=== PATIENT | female | born 1985 | race Caucasian/White ===

== ENCOUNTER 2018-03-09 08:45 | Inpatient (IN) | payer SELFPAY ==
[2018-03-09] VITALS (17 sets, daily range): BP systolic 100–132; BP diastolic 48–78; PULSE 76–103; RESP 14–18; TEMP 36.6–37.1; O2SAT 96–100; BMI 28.4
[2018-03-09] MEDS: Lactated Ringers 1,000 ML 50 ML IV ×2 (09:00→10:20)
[2018-03-09 09:08] LABS: ROM Internal Control Test YES-OK TO RESULT pt. (Internal QC)
[2018-03-09 09:10] LABS: ROM Patient Test POSITIVE (Negative)
[2018-03-09 09:16] LABS: Hematocrit 38.5 % (37-47); Hemoglobin 13.4 g/dl (12.0-15.0); Mean Corp Hgb Conc 34.8 g/gl (32-36); Mean Corpuscular Hgb 29.8 pg (27.0-32.0); Mean Corpuscular Volume 85.7 fL (81-99); Platelet Count 244 K/mm3 (150-450); RBC Distribution Width CV 11.9 % (11.6-14.6); RBC Distribution Width SD 36.6 fl (35.1-43.9); Red Blood Count 4.49 M/mm3 (4.2-5.4); White Blood Count 16.8 K/mm3 (4.4-11.0)
[2018-03-09 09:17] LABS: Scan Indicated on CBC? Y/N NO
[2018-03-09] MEDS: fentaNYL-bupivacaine (epidural) 100 ML BAG EPIDURAL (09:47)
[2018-03-09] MEDS: Cefazolin 2 GM in 0.9% Normal Saline 100 ML IV (13:05)
[2018-03-09] MEDS: Oxytocin 30 units/NS 500 ml 30 UNITS/500 ML IV.SOLN 167 UNITS IV (13:17)
--- NOTE | 2018-03-09 14:34 | PCM.OB.CSR ---
Delivery Classification: Stat Final STEFAN: 03/04/18 Gestational age: 40 Weeks and 5 Days Indications: Patient taken to OR where FHT's were noted to be 120's-130's. She continued to push. FHT decelerations were noted again & decision made to proceed with section for NRFHT's and OP presentation. Indications for : Nonreassuring Status Description of Procedure: Epidural anesthesia was dosed in the OR. She was prepped and draped in normal sterile fashion in a dorsal lithotomy position with a leftward tilt. After ensuring adequacy of anesthesia the Pfannensteil skin incision was made and carried through to the underlying fascia with a scalpel. The fascia was incised in the midline and carried laterally with the Montiel scissors. The rectus muscles were in the midline and the peritoneum was entered bluntly. The bladder flap was dissected down carefully with the Metzenbaum scissors and blunt dissection. The uterus was incised in a transverse fashion and then incision extended with cephalocaudad traction. The fetus was vertex and the head was brought to the incision in the flexed position. This required head elevation by the SPA ASSISTANT MANAGER vaginally. With good fundal pressure the head easily delivered. Gentle traction placed on head to allow delivery of anterior & posterior shoulders. No excess traction placed on head at any time. The body delivered easily. The 3VC cord was clamped and cut. Male then handed off to the waiting RN. The placenta was delivered w/ gentle traction and fundal massage and the uterus was exteriorized and cleared of all clots and debris. The uterine incision was closed with 2 1-0vicryl sutures in a running locked fashion. 2 additional figure of 8 sutures were needed on the right side of the incision to ensure hemostasis. The bovie was used to further obtain further hemostasis of the uterine incision. A second imbricating layer of monocryl was placed. The uterus was returned to the peritoneal cavity. The pelvis was irrigated & then cleared of all clots and debris. The uterine incision was reexamined and found to be hemostatic. Some aaliyah was placed over the uterine incision due to the denuded areas. The parietal peritoneum was reapproximated with running vicryl suture. The fascia was closed with looped PDS suture in a running standard fashion. The subcutaneous tissue was examined & any bleeding bovie cauterized. The subcutaneous tissue was reapproximated with 3-0 plain gut suture. The skin was closed in a subcuticular fashion by the SPA ASSISTANT MANAGER with me present in the labor and delivery suite. I performed the remainder of the procedure w/ assistance. Amniotic Membrane Rupture Type: Spontaneous Amniotic Fluid Description: Moderate meconium Placenta Disposition: [facility] Drain: [place] to straight drain Fluids Replaced: 1 L Cord Entanglement: None Cord Vessel Description: 3 Vessels Esitmated Blood Loss (ml): 900ml Gender: Male (1 minute): 8 (5 minute): 9 Delayed cord clamping: No Pre-op Antibiotic Given: Ancef 2 grams IV x1 Complications: None
--- NOTE | 2018-03-09 14:36 | OP.PN_ITS ---
R-Opwdohj-Likccftoe PostOp Date of Procedure: 03/09/18 Primary Surgeon/Physician: Bin Owens produce associate: Harry Blair Pre-op Diagnosis: Nonreassuring Status Post-Op Diagnosis: Nonreassuring Statu Surgery/Procedure Performed: Primary low transverse Section Description of Surgical Findings:: cephalic male infant Uterus & adnexa normal Estimated Blood Loss: 900ml Specimens Removed: placenta Drain: [place] to straight drain Type of Anesthesia: Epidural
[2018-03-09] MEDS: Lactated Ringers 1,000 ML 100 ML IV ×2 (15:43→21:51)
[2018-03-09] MEDS: Ketorolac 30 MG/ML Syringe IV (18:30)
[2018-03-09] MEDS: 0.9% Saline Lock 10 ML Syringe IV (18:30)
[2018-03-10] VITALS (10 sets, daily range): BP systolic 100–120; BP diastolic 60–81; PULSE 68–91; RESP 14–16; TEMP 36.4–37.3; O2SAT 93–100
[2018-03-10] MEDS: Ketorolac 30 MG/ML Syringe IV ×4 (00:28→18:08)
[2018-03-10 05:59] LABS: Hemoglobin 11.2 g/dl (12.0-15.0); Mean Corp Hgb Conc 32.9 g/gl (32-36); Mean Corpuscular Hgb 29.1 pg (27.0-32.0); Mean Corpuscular Volume 88.3 fL (81-99); Mean Platelet Vol. 10.4 fl (6.2-12.0); Platelet Count 191 K/mm3 (150-450); RBC Distribution Width CV 12.4 % (11.6-14.6); RBC Distribution Width SD 39.7 fl (35.1-43.9); Red Blood Count 3.85 M/mm3 (4.2-5.4); White Blood Count 16.7 K/mm3 (4.4-11.0)
[2018-03-10 06:01] LABS: Scan Indicated on CBC? Y/N NO
[2018-03-10] MEDS: Lactated Ringers 1,000 ML 100 ML IV (07:35)
--- NOTE | 2018-03-10 08:29 | PCM.HP.OB ---
History Date of Admission: 03/09/18 Final STEFAN: 03/04/18 Gestational age: 40 Weeks and 5 Days History of this : This is a 32 year-old, G [], P [], at 40 weeks gestational age. Medical History: Medical History (Last Updated 03/10/18 @ 08:31 by Bin Owens) [place] teeth extracted K08.409 Allergies No Known Allergies Allergy (Verified 03/09/18 08:53) Home Medications: Home Medications Vits [Prenatabs FA] 1 tablet PO DAILY 03/09/18 Smoking Status: Never smoker Number of Fetus(es): 1 History Past Pregnancies: Past Pregnancies Delivery Date Name GA/Weeks Outcome Route Weight Infant Gender Labor Length Anesthesia Delivery Location Provider FOB Labs: see [facility] H[facility]P Physical Exam Vitals: Vital Signs Temp Pulse Resp BP Pulse Ox 98.2 F 68 16 100/64 93 03/10/18 08:00 03/10/18 08:00 03/10/18 08:00 03/10/18 08:00 03/10/18 08:00 General: Alert, Oriented x3 Abdomen: Soft, Non Tender, Non-Distended, Gravid Extremities:: No tenderness/swelling PRINTING TECHNICIAN: Normal external genitalia Estimated gestational size: Appropriate for gestational size Presentation: Cephalic Cervix Dilation (cm): 9 - BBOW Station: 0 Effacement (%): 100 Assessment/Plan This is a 32 year-old, G [], P [], at 40&5 weeks gestational age. Admit to L&D Pain - epidural GSB negative Routine care EFW - less than 4500g, adequate pelvis
--- NOTE | 2018-03-10 08:34 | HP.PCM_ITS ---
History Date of Admission: 03/09/18 Final STEFAN: 03/04/18 Gestational age: 40 Weeks and 5 Days History of this : This is a 32 year-old, G [], P [], at 40 weeks gestational age. Medical History: Medical History (Last Updated 03/10/18 @ 08:31 by Bin Owens) [place] teeth extracted K08.409 Allergies No Known Allergies Allergy (Verified 03/09/18 08:53) Home Medications: Home Medications Vits [Prenatabs FA] 1 tablet PO DAILY 03/09/18 Smoking Status: Never smoker Number of Fetus(es): 1 History Past Pregnancies: Past Pregnancies Delivery Date Name GA/Weeks Outcome Route Weight Infant Gender Labor Length Anesthesia Delivery Location Provider FOB Labs: see [facility] Physical Exam Vitals: Vital Signs Temp Pulse Resp BP Pulse Ox 98.2 F 68 16 100/64 93 03/10/18 08:00 03/10/18 08:00 03/10/18 08:00 03/10/18 08:00 03/10/18 08:00 General: Alert, Oriented x3 Abdomen: Soft, Non Tender, Non-Distended, Gravid Extremities:: No tenderness/swelling DRUG SAFETY DATA MANAGEMENT SPECIALIST: Normal external genitalia Estimated gestational size: Appropriate for gestational size Presentation: Cephalic Cervix Dilation (cm): 9 - BBOW Station: 0 Effacement (%): 100 Assessment/Plan This is a 32 year-old, G [], P [], at 40&5 weeks gestational age. Admit to L&D Pain - epidural GSB negative Routine care EFW - less than 4500g, adequate pelvis
[2018-03-10] MEDS: Senna/Docusate Sodium 1 Tablet PO (11:47)
[2018-03-10] MEDS: 0.9% Saline Lock 10 ML Syringe IV ×2 (11:49→18:08)
[2018-03-11] MEDS: Ketorolac 30 MG/ML Syringe IV ×3 (00:06→12:24)
[2018-03-11] MEDS: 0.9% Saline Lock 10 ML Syringe IV ×3 (00:07→12:24)
[2018-03-11 02:07] VITALS: BP 131/76; PULSE 70; RESP 16; TEMP 36.8; O2SAT 95
[2018-03-11 10:15] VITALS: BP 110/74; PULSE 87; RESP 16; TEMP 36.5
--- NOTE | 2018-03-11 13:12 | PCM.PN.OB ---
Subjective: Pain well controlled, average lochia. Positive bowel movement. Tolerating regular diet. - Physical Exam General: Alert, Cooperative, No apparent distress Abdomen: Soft, Distended - Mildly and softly, Tender - Appropriately Skin: Incision - bandage clean, dry and intact Vital Signs Temp Pulse Resp BP Pulse Ox 97.7 F L 87 16 110/74 95 03/11/18 10:15 03/11/18 10:15 03/11/18 10:15 03/11/18 10:15 03/11/18 02:07 Oxygen Delivery Method Room Air Weight: 84.822 kg Body Mass Index (BMI) 28.4 Intake and Output for Last 24 Hours 03/09/18 03/10/18 03/11/18 23:59 23:59 23:59 Intake Total 1324 / 1324 Output Total 1300 / 1300 3600 / 3600 Balance -3600 / -3600 Medical Necessity - Tobacco Use Smoking Status: Never smoker Assessment/Plan Postoperative day #2 status post section. Patient is doing well. is breast-feeding and doing well. Patient may be discharged home today with routine instructions and follow-up if she desires.
--- NOTE | 2018-03-11 13:17 | DCINST_ITS ---
Discharge Diet: No Restrictions Discharge Activity: Return to Normal Activity, May Not Drive - for 2 weeks, May not drive while taking narcotic pain medications., May Shower, May Take a Tub Bath - in 7 days. May resume sexual activity in: 4-6 weeks Lifting Restrictions: 20 pounds Additional Activity Instructions:: Nothing in the vagina for 4-6 weeks. You may return to work/school in 6 weeks. Call your doctor if your incision/area has: Continuous Slow Oozing, Sudden Increased Bleeding, Increased Pain/ Swelling, Increased Redness, Foul Smelling Discharge Call your doctor if you observe: Fever of 101 or Higher, Using more than one pad per hour - for 2 hours Suture Line Care: Avoid Pulling/Pushing, Avoid Pinching/Bending Remove Dressing in (days):: 3 - or if it gets wet under the plastic Cleanse incision/area with: Keep Dressing Clean & Dry Additional Instructions: If you experience any of the following, contact your healthcare provider. * Bleeding that soaks a pad every hour for 2 hours * Fever 100.4 or higher * Unrelieved incision or abdominal pain * Swelling, redness, discharge or bleeding from your incision or episiotomy site * Your incision begins to separate * Problems urinating (including inability to urinate or burning while urinating). * Visual changes * Severe headache * Flu-like symptoms * Pain or redness in one of both of your breasts * Pain, warmth, tenderness or swelling in your legs, especially the calf area * Frequent nausea and vomiting * Symptoms of depression or anxiety If you experience any of the following, call 911 or go to the nearest Emergency Room. * Chest pain * Problems breathing * Seizure activity * Partial or complete paralysis of a body part, slurred speech, weakness or drooping of the face, or a sudden inability to walk or hold your balance Allergies/Adverse Reactions: Allergies No Known Allergies Allergy (Verified 03/09/18 08:53) Medications to take at Discharge Vits [Prenatabs FA ] 1 tablet PO DAILY 03/09/18 Ibuprofen [Motrin] 800 mg PO TID PRN PRN #60 tablet 03/11/18 Oxycodone HCl/Acetaminophen [Percocet 5-325] 1 - 2 tablet PO Q8 PRN 7 Days #28 tablet 03/11/18 The following prescriptions were given: Ibuprofen [Motrin] 800 mg PO TID PRN PRN #60 tablet PRN Reason: Pain Oxycodone HCl/Acetaminophen [Percocet 5-325] 1 - 2 tablet PO Q8 PRN 7 Days #28 tablet PRN Reason: Moderate-Severe pain Follow-Up: Call to make an appointment with your doctor for an incision check in 1-2 weeks. You will also need a 6 week post- follow up appointment. Test results from this visit will be discussed in further detail at your follow- up appointment, if applicable. Please Follow Up With: Bin Owens - Call to make an appointment for an i ncision check in 1-2 [phone] When: You will need a post check in 6 weeks. Primary Care Physician: Care Physician,No Primary [Primary Care Provider] -
[2018-03-11 14:00] VITALS: BP 117/84; PULSE 89; RESP 16; TEMP 36.4
--- NOTE | 2018-03-11 15:45 | CASEMGMT ---
Social Work Brief Assessment - Labor and Delivery Unit Refer documentation below for further details. Date of Referral/Notification: 03/09/2018 Time of Referral: 1430 Referred By: verbal notification by nursing staff Reason for Referral: first time parents, self-pay/no insurance Date of Intervention: 03/11/2018 Time of Intervention: 1540 Informant: Medical record and mother of baby (MOB) Roberta Mullen History: MOB is G1, P0 to 1 after delivering baby boy Umesh Mullen. MOB is to father of baby (FOB) Laura Mullen. 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 MOB with late care due to hectic work schedule with the horses. MOB does plan to take some time off from working, to focus on care of the baby now. MOB denies any form of abuse in relationship with FOB. MOB reports to have needed supplies, denies history of any emotional health issues, nor any substance use or dependence issues. MOB did have a negative drug screen on 09-22-17. MOB reports to have adequate support from FOB?s side of the family who lives locally, and from friends. Assessment: MOB reports to have needed supplies for baby. MOB?s mother is in town visiting from [place] through the weekend so will be available to help. FOB?s mother and then several nieces on FOB?s side are around and will be helping MOB out for a few weeks. Note, FOB?s family is from the [facility], FOB did not join the [facility] yazidism, but as is the norm in the [facility] family will be helping MOB and FOB in the period. MOB reports to have insurance through their yazidism, but that due MOB signing up for the insurance after MOB was not covered for the . Baby will be covered, and MOB will be covered moving forward. MOB reports to know about the [facility] package deal, and that FOB has already paid the package, so not worries this way. MOB denies need for other resources but accepting of community resource packet this automotive service writer provided. Discussed depression and anxiety with MOB. MOB receptive to taking information in case needed, but repots to feel happy, to feel a connection to baby, and denies any history of emotional health issues for self. MOB pleasant, bright and happy affect, smiled, attentive to baby during social work visit. Plan: MOB and baby to home when ready for discharge. Resources for home going provided. No further needs requested or indicated. -OBI Alcantara, CRM SOLUTION ARCHITECT
[2018-03-11 18:00] VITALS: BP 139/91; PULSE 77; RESP 16; TEMP 37.1
[2018-03-11] MEDS: Acetaminophen 500 MG Tablet 1000 MG PO (18:14)
[2018-03-11] MEDS: oxyCODONE 5 MG Tablet PO (18:14)
[2018-03-11 19:32] VITALS: BP 124/88
--- NOTE | 2018-03-11 21:13 | PCM.DC.SUM ---
Discharge Date and Diagnosis Date of Admission: 03/09/18 Date of Discharge: 03/11/18 Hospital Course and Treatment Summary of Care Provided: The patient is a 32 year old female who was admitted at 40 5/7 weeks in labor. She had a primary LTCS for nonreassuring FHTs. Postoperatively she did well and by postoperative day #2 she was ambulating, urinating, tolerating regular diet and oral pain medications and she was discharged home with routine instructions and prescriptions. ` [] - Physical Exam Vital Signs Temp Pulse Resp BP Pulse Ox 98.7 F 77 16 124/88 H 95 03/11/18 18:00 03/11/18 18:00 03/11/18 18:00 03/11/18 19:32 03/11/18 02:07 Oxygen Delivery Method Room Air Weight: 84.822 kg Body Mass Index (BMI) 28.4 Intake and Output for Last 24 Hours 03/09/18 03/10/18 03/11/18 23:59 23:59 23:59 Intake Total 1324 / 1324 Output Total 1300 / 1300 3600 / 3600 Balance -3600 / -3600 Discharge Diet: No Restrictions Discharge Activity: Return to Normal Activity, May Not Drive - for 2 weeks, May not drive while taking narcotic pain medications., May Shower, May Take a Tub Bath - in 7 days. May resume sexual activity in: 4-6 weeks Additional Activity Instructions:: Nothing in the vagina for 4-6 weeks. You may return to work/school in 6 weeks. Call your doctor if your incision/area has: Continuous Slow Oozing, Sudden Increased Bleeding, Increased Pain/ Swelling, Increased Redness, Foul Smelling Discharge Call your doctor if you observe: Fever of 101 or Higher, Using more than one pad per hour - for 2 hours Suture Line Care: Avoid Pulling/Pushing, Avoid Pinching/Bending Remove Dressing in (days):: 3 - or if it gets wet under the plastic Cleanse incision/area with: Keep Dressing Clean & Dry Home Medications: Medications to take at Discharge Vits [Prenatabs FA ] 1 tablet PO DAILY 03/09/18 Ibuprofen [Motrin] 800 mg PO TID PRN PRN #60 tablet 03/11/18 Oxycodone HCl/Acetaminophen [Percocet 5-325] 1 - 2 tablet PO Q8 PRN 7 Days #28 tablet 03/11/18 Following Prescrptions Were Given to Patient: Ibuprofen [Motrin] 800 mg PO TID PRN PRN #60 tablet PRN Reason: Pain Oxycodone HCl/Acetaminophen [Percocet 5-325] 1 - 2 tablet PO Q8 PRN 7 Days #28 tablet PRN Reason: Moderate-Severe pain Primary Care Physician: Care Physician,No Primary [Primary Care Provider] - Please Follow Up With: Bin Owens - Call to make an appointment for an incision check in 1-2 [phone] When: You will need a post check in 6 weeks. Medical Necessity - Tobacco Use Smoking Status: Never smoker Meaningful Use Info Meaningful Use Diagnoses (Choose all that apply): None applicable
== END 2018-03-11 19:45 | disposition home or self-care (01) | DRG 788 ==
LOC: WPOUT 08:51
PROVIDERS: Admitting Provider Obstetrics & Gynecology; Referring Provider Obstetrics & Gynecology; Visit Provider Obstetrics & Gynecology
DX: O76 Abnormality in fetal heart rate and rhythm complicating labor and delivery (principal); O48.0 Post-term pregnancy; Z3A.40 40 weeks gestation of pregnancy; Z37.0 Single live birth; O77.0 Labor and delivery complicated by meconium in amniotic fluid
CPT/HCPCS: 59025; 59050; 84112; 85027; 86850; 86900; 99218; J7120; A4216; G0378; J2405

== ENCOUNTER 2018-03-16 10:20 | Outpatient (CLI) | payer SELFPAY ==
[2018-03-09 08:52] VITALS: BMI 28.4
== END 2018-03-16 11:00 | disposition home or self-care (01) ==
LOC: WPOUT 10:23 → WP 10:25
PROVIDERS: Referring Provider Obstetrics & Gynecology; Visit Provider Obstetrics & Gynecology
DX: Z39.1 Encounter for care and examination of lactating mother (principal)
CPT/HCPCS: 96152

== ENCOUNTER 2022-04-19 23:30 | Inpatient (IN) | payer OTHER, SELFPAY ==
[2022-04-20] VITALS (18 sets, daily range): BP systolic 78–122; BP diastolic 39–78; PULSE 68–97; RESP 14–18; TEMP 36.2–37.4; O2SAT 97–100; BMI 28.1
[2022-04-20 00:30] LABS: Absolute Lymphocyte Count 3.53 X10^3/uL (0.83-4.51); Absolute Neutrophil Count 11.2 X10^3/uL (2.0-7.7); Basophil# 0.06 X10^3/uL; Basophil% 0.4 % (0-1); Eosinophil# 0.09 X10^3/uL; Eosinophils% 0.6 % (0-5); Hematocrit 39.8 % (37-47); Hemoglobin 13.2 g/dL (12.0-15.0); Lymphocyte # 3.53 X10^3/ul (0.83-4.51); Lymphocyte % 21.7 % (19-41); Mean Corp Hgb Conc 33.2 g/dL (32-36); Mean Corpuscular Hgb 28.9 pg (27.0-32.0); Mean Corpuscular Volume 87.3 fL (81-99); Mean Platelet Vol. 10.5 fl (6.2-12.0); Monocyte# 1.22 X10^3/uL; Monocyte% 7.5 % (0-10); NRBC Flagged by Analyzer 0 % (0-5); Neutrophil # 11.24 X10^3/uL (2.7-7.7); Neutrophil % 68.9 % (47-70); Platelet Count 365 K/mm3 (150-450); RBC Distribution Width CV 12.3 % (11.6-14.6); RBC Distribution Width SD 39.7 fl (35.1-43.9); Red Blood Count 4.56 M/mm3 (4.2-5.4); White Blood Count 16.3 K/mm3 (4.4-11.0)
[2022-04-20] MEDS: Cefazolin 2 GM in 0.9% Normal Saline 100 ML IV (01:00)
--- NOTE | 2022-04-20 01:14 | RAD_ITS ---
INDICATION: surgery POST OP EMERGENCY C SECTION, SCRUB COUNT EXAMINATION/TECHNIQUE: X-RAY - XR Abdomen 1 View portable. 1:06 AM. COMPARISON: FINDINGS: Single portable supine view. Mildly dilated small bowel in the upper abdomen, likely ileus. Relative paucity of bowel gas in the lower abdomen/pelvis. No radiopaque foreign body identified. The upper abdomen diaphragm/lung bases not included. RAD/Abdomen Single View (Portable) IMPRESSION: No radiopaque foreign body identified. Electronically Signed: Darya Samson MD at 2:16 EST ,
[2022-04-20] MEDS: Lactated Ringers 1,000 ML 100 ML IV (01:30)
[2022-04-20] MEDS: Oxytocin 15 Units/NS 250ml 15 UNITS/250 ML IV.SOLN 83 UNITS IV (01:35)
--- NOTE | 2022-04-20 01:56 | PCM.HP.OB ---
HPI - General General Date of Admission: 04/19/22 Date of Service: 04/20/22 Chief Complaint: SROM, breech HPI Narrative PAOLA HOWARD, is a 36 F who presents shortly after SROM at home completely dilated and incomplete footling breech presentation. Maternal Data Information Final STEFAN: 05/01/22 Final STEFAN Source: LMP PFSH PFSH Home Medications vits,calcium no.78-iron fumarate-folic acid 29 mg-1 mg tablet (Prenatabs FA) 1 tab PO DAILY 03/09/18 [History Last Taken 03/08/18] Allergy/AdvReac Type Severity Reaction Status Date / Time No Known Allergies Allergy Verified 03/09/18 08:53 Surgical History (Updated 04/20/22 @ 02:[address] Karey Brannon, DO) Previous section [place] teeth extracted Social History Smoking Status: Never smoker History Elective abortions Hx Para 1 Spontaneous abortions Hx # Term Pregnancies Ectopic pregnancies Hx # Pregnancies Multiple births # of living children Addt'l History: H/o 1 prior section Plan was for repeat section around 39 week gestation Vital Signs Vital Signs Vital Signs: 04/20/22 01:30 04/20/22 01:45 Temperature 97.1 F L Temperature Source Temporal Pulse Rate 89 97 Respiratory Rate 14 14 Respiratory Pattern Normal Blood Pressure 78/39 L 115/78 Blood Pressure Mean 52 90 Blood Pressure Source Monitor Monitor Blood Pressure Position Semi-Fowlers Semi-Fowlers Blood Pressure Location Left Arm Left Arm Pulse Ox 100 99 Oxygen Delivery Method Room Air Room Air Weight Weight: 188 lb Body Mass Index (BMI) 28.1 Physical Exam Const alert General Appearance: cooperative Narrative: 1 leg was noted to be coming out of the vagina past the introitus to the level of the mid thigh, and the other leg was palpated to be in the vaginal canal Labs Labs Labs: Blood Type A POSITIVE Antibody Screen NEGATIVE Hct 39.8 % (37-47) Hgb 13.2 g/dL (12.0-15.0) Rhogam given: No Assessment & Plan (1) 38 weeks gestation of : PLAN: Patient presented to labor and delivery complete and breech presentation after spontaneous rupture of membranes at home. Upon arrival the patient was back in the operating room with Dr. Mary Lou Toussaint present and evaluating the patient. 1 leg was noted to be coming out of the patient's vagina up to the level of mid thigh, and the other leg was palpated to be tucked up and in the vaginal canal. The head was palpated in the patient's left upper quadrant. The ultrasound machine was in the room but was not on and able to be used quickly. The decision was made to proceed with an emergent section given majority of the fetus was palpated in the patient's abdomen on exam. Discussed with patient decision to proceed with a stat section. See operative report for details. (2) History of section: (3) Breech presentation:
--- NOTE | 2022-04-20 02:11 | PCM.OPRPT ---
Problems Associated Problem List Diagnoses (1) Breech presentation: (2) History of section: (3) 38 weeks gestation of : Report of Operation Date of Procedure: 04/20/22 Pre-Operative Diagnosis: 38 week gestation, SROM, incomplete footling breech presentation, complete dilation, history prior section Post-Operative Diagnosis: As above Surgery/Procedure Performed:: Stat repeat section with T incision on the uterus with pfannenstiel skin incision Description of Surgical Findings:: 1 leg was noted to be coming out of the patient's vagina to the level of the mid thigh. Normal appearing placenta. Normal appearing uterus and bilateral adnexa. No significant adhesive disease noted. Apgars 3, 7, 9. Surgeon: Karey Brannon asbestos brake lining finisher helper: Mary Lou Haley asbestos brake lining finisher helper: Mariana ALFREDO Type of Anesthesia: General Special Medications: None Specimen's removed: Placenta Drains: [place] Estimated Blood Loss (mL): 900 Fluids Replaced: 2300 Description of Procedure: The patient was in the operating room upon my arrival at 2346. A vaginal exam was performed noting 1 leg coming out of the patient's vagina to the level of the mid thigh. The ultrasound machine was not on, and ready for emergent use. The patient's abdomen was palpated and the majority of the fetus was palpated to be in the abdomen, and the head was noted to be in the patient's left upper quadrant. The decision was made to proceed with an emergent section. A Betadine prep was performed and a [place] catheter placed. The patient was draped and general anesthesia was induced. A Pfannenstiel skin incision was made using the scalpel at 2352 and this was carried down to the underlying layer of fascia. The fascia was incised in the midline. The fascia was extended laterally with blunt dissection and traction. The rectus muscles were in the midline. The peritoneum was entered bluntly and the peritoneal incision was extended bluntly. A bladder blade was inserted. The uterus was palpated with the head noted to be at the fundus of the uterus. The buttocks was palpated to be in the lower uterine segment. The decision was made to make a low transverse incision on the uterus, as it was felt that the buttock could be brought to the hysterotomy. Once a low transverse incision was made the buttocks was attempted to be elevated out of the maternal pelvis. The buttocks was unable to be elevated enough to deliver through the hysterotomy. Given this the decision was made to T the uterine incision. Using bandage scissors the uterine incision was extended vertically. The head was then palpated and flexed, and unable to be delivered through the hysterotomy on one attempt given my angle. Dr. Mary Lou Toussaint then flexed the head and was able to deliver the head through the hysterotomy. I then delivered the shoulders and body of the easily through the hysterotomy without any force or delay. A VMI was delivered at 2357. The cord was clamped and cut immediately and the was handed off to the awaiting nursery staff. The placenta was removed with manual extraction. The uterus was exteriorized. The uterus was cleared of all clot and debris. The angles of the low transverse incision were closed with 1-0 Vicryl in a running locked fashion. Next the vertical extension was closed with 1-0 Vicryl in a running locked fashion. At this point Dr. Mary Lou Toussaint scrubbed out as Mariana ALFREDO was now present for the case. Mariana ALFREDO then assisted with the remaining portion of the procedure. A second imbricating layer was performed along the vertical incision using 1-0 Vicryl. Several additional [id number] sutures using 1-0 Vicryl were placed along the vertical incision for hemostasis. 3-0 Vicryl was then used to reapproximate the uterine serosa. Hemostasis was noted. Adnexa bilaterally were normal-appearing. The uterus was placed back into the abdomen. Gutters were cleared of all clot and debris. Eliecer was placed over the lower uterine segment and hysterotomy, and hemostasis was again confirmed. The peritoneum was closed with 3-0 Vicryl in a running fashion. The fascia was closed with strata fix in a running fashion. Subcutaneous space was irrigated. The subcutaneous space was reapproximated 3-0 Vicryl. The skin was closed with 4-0 Monocryl. A silver dressing was placed. An x-ray was taken at the end of the case and no retained instruments were noted. Instrument, sponge, needle counts were correct at the end of the case. Patient was then extubated and taken to the recovery room in stable condition. Grafts/Implants Used: None Procedure Start Time: 23:52 Complications None Admit VTE Documentation VTE Present on Admission: No VTE Mechan Device Prophylaxis: SCD's
[2022-04-20] MEDS: Acetaminophen 500 MG Tablet 1000 MG PO ×4 (02:34→20:32)
[2022-04-20] MEDS: Ketorolac 30 MG/ML Syringe IV ×4 (02:34→20:33)
[2022-04-20 05:46] LABS: Hematocrit 31.7 % (37-47); Hemoglobin 10.5 g/dL (12.0-15.0); Mean Corp Hgb Conc 33.1 g/dL (32-36); Mean Corpuscular Hgb 29.1 pg (27.0-32.0); Mean Corpuscular Volume 87.8 fL (81-99); Platelet Count 289 K/mm3 (150-450); RBC Distribution Width CV 12.3 % (11.6-14.6); RBC Distribution Width SD 39.8 fl (35.1-43.9); Red Blood Count 3.61 M/mm3 (4.2-5.4); White Blood Count 20.2 K/mm3 (4.4-11.0)
--- NOTE | 2022-04-20 08:16 | PCM.PN.OB ---
Subjective Subjective Pt is doing well. She has been up out of bed once without lightheadedness or dizziness. She denies chest pain, shortness of breath, leg pain. Lochia is normal. Pain is controlled. No nausea or vomiting. She is tolerating crackers and water. Objective Data Objective Data Vital Signs: Vital Signs Temp Pulse Resp BP Pulse Ox O2 Del Method 99.2 F H 73 16 113/67 97 Room Air 04/20/22 07:30 04/20/22 07:30 04/20/22 07:30 04/20/22 07:30 04/20/22 07:30 04/20/22 07:30 Oxygen Delivery Method Room Air Weight: 188 lb Body Mass Index (BMI) 28.1 Intake & Output: Intake and Output for Last 24 Hours 04/18/22 04/19/22 04/20/22 23:59 23:59 23:59 Intake Total 1333.33 / 1333.33 Output Total 2250 / 2250 Balance -916.67 / -916.67 Lab / Micro Data Result Diagrams: 04/20/22 05:37 Labs: Laboratory Results - last 24 hr 04/19/22 23:42: WBC 16.3 H, RBC 4.56, Hgb 13.2, Hct 39.8, MCV 87.3, MCH 28.9, MCHC 33.2, RDW Std Deviation 39.7, RDW Coeff of Yesica 12.3, Plt Count 365, MPV 10.5, Immature Gran % (Auto) 0.900, Neut % (Auto) 68.9, Lymph % (Auto) 21.7, [place] % (Auto) 7.5, Eos % (Auto) 0.6, Baso % (Auto) 0.4, Absolute Neuts (auto) 11.2 H, Absolute Lymphs (auto) 3.53, Nucleated RBC % 0 04/19/22 23:42: WBC Cancelled, Corrected WBC Cancelled, RBC Cancelled, Hgb Cancelled, Hct Cancelled, MCV Cancelled, MCH Cancelled, MCHC Cancelled, RDW Std Deviation Cancelled, RDW Coeff of Yesica Cancelled, Plt Count Cancelled, MPV Cancelled, Immature Gran % (Auto) Cancelled, Neut % (Auto) Cancelled, Lymph % (Auto) Cancelled, [place] % (Auto) Cancelled, Eos % (Auto) Cancelled, Baso % (Auto) Cancelled, Absolute Neuts (auto) Cancelled, Absolute Lymphs (auto) Cancelled, Total Counted Cancelled, Neutrophils % (Manual) Cancelled, Band Neutrophils % Cancelled, Lymphocytes % (Manual) Cancelled, Monocytes % (Manual) Cancelled, Eosinophils % (Manual) Cancelled, Basophils % (Manual) Cancelled, Metamyelocytes % Cancelled, Myelocytes % Cancelled, Promyelocytes % Cancelled, Blast Cells % Cancelled, Plasma Cell % (Manual) Cancelled, Other Cells % Cancelled, Nucleated RBC % Cancelled, Nucleated RBCs/100 WBC Cancelled, Differential Comment Cancelled, Diff Path Review Cancelled, Hypersegmented Neuts Cancelled, Atypical Lymphocytes Cancelled, Reactive Lymphocytes Cancelled, Smudge Cells Cancelled, Toxic Granulation Cancelled, Toxic Vacuolation Cancelled, Dohle Bodies Cancelled, Karley Rods Cancelled, Platelet Estimate Cancelled, Plt Morphology Comment Cancelled, RBC Morphology Cancelled, Polychromasia Cancelled, Hypochromasia Cancelled, Poikilocytosis Cancelled, Basophilic Stippling Cancelled, Anisocytosis Cancelled, Microcytosis Cancelled, Macrocytosis Cancelled, Spherocytes Cancelled, Sickle Cells Cancelled, Target Cells Cancelled, Tear Drop Cells Cancelled, Ovalocytes Cancelled, Stomatocytes Cancelled, [place] Bodies Cancelled, [place] Cells Cancelled, Bite Cells Cancelled, Crenated Cell Cancelled, Acanthocytes (Spur) Cancelled, Rouleaux Cancelled, Schistocytes Cancelled 04/20/22 00:25: Blood Type A POSITIVE, Antibody Screen NEGATIVE 04/20/22 05:37: WBC 20.2 H, RBC 3.61 L, Hgb 10.5 L, Hct 31.7 L, MCV 87.8, MCH 29.1, MCHC 33.1, RDW Std Deviation 39.8, RDW Coeff of Yesica 12.3, Plt Count 289, MPV 10.0 Radiography Diagnostic Testing: Radiology Impression KUB X-Ray 04/20/22 01:14 IMPRESSION: No radiopaque foreign body identified. Electronically Signed: Darya Samson MD at 2:16 EST , ADDENDUM: 04/20/22 0232 IMPRESSION: No radiopaque foreign body identified. N.B. : marshal rodriguez, OT, confirmed on 04/20/2022 02:25:45 (ET) that the healthcare facility has received the radiology report. Electronically Signed: Darya Samson MD at 2:16 EST , Physical Exam Const alert and no apparent distress General Appearance: comfortable HEENT normocephalic Resp normal respiratory effort GI soft to palpation and non-distended GI Narrative: ATTP, FF@U, non acute Extremity normal to inspection and no calf tenderness Assessment & Plan (1) Status post emergency section: PLAN: POD#1 s/p stat C/S for complete and breech presentation. Doing well post op. Pain well controlled. CBC reviewed. VSS. Baby in special care nursery. Routine care today.
[2022-04-20] MEDS: Senna/Docusate Sodium 1 Tablet PO (08:44)
[2022-04-21] MEDS: Acetaminophen 500 MG Tablet 1000 MG PO ×4 (02:35→20:45)
[2022-04-21] MEDS: Ibuprofen 600 MG Tablet PO ×4 (02:35→20:45)
[2022-04-21 02:36] VITALS: BP 97/60; PULSE 79; RESP 16; TEMP 36.8; O2SAT 98
--- NOTE | 2022-04-21 08:17 | PCM.PN.OB ---
Subjective Subjective Doing well per patient and nursing staff. Ambulating and taking PO without difficulty. Voiding and passing flatus. Pain controlled. , services for assistance. Denies headache, visual changes, chest pain, shortness of breath, leg pain or increased bleeding. Lochia normal. Objective Data Objective Data Vital Signs: Vital Signs Temp Pulse Resp BP Pulse Ox O2 Del Method 98.2 F 79 16 97/60 98 Room Air 04/21/22 02:36 04/21/22 02:36 04/21/22 02:36 04/21/22 02:36 04/21/22 02:36 04/21/22 02:36 Oxygen Delivery Method Room Air Weight: 188 lb Body Mass Index (BMI) 28.1 Intake & Output: Intake and Output for Last 24 Hours 04/19/22 04/20/22 04/21/22 23:59 23:59 23:59 Intake Total 2033.33 / 2033.33 Output Total 4500 / 4500 Balance -2466.67 / -2466.67 Lab / Micro Data Result Diagrams: 04/20/22 05:37 ROS Constitutional Constitutional: Reports systems reviewed and no addt'l complaints, except as documented; Denies headache(s) Eyes Eyes: Denies acute decrease in peripheral vision, blurry vision or change in vision ENT HEENT: Reports systems reviewed and no addt'l complaints, except as documented Cardiovascular Cardiovascular: Denies chest pain or dizziness Respiratory/Chest Respiratory/Chest: Denies cough, dyspnea, dyspnea on exertion, shortness of breath at rest or shortness of breath with exertion Gastrointestinal Gastrointestinal: Denies abdominal pain, diarrhea, nausea or vomiting Genitourinary Genitourinary: Denies abdominal discomfort Musculoskeletal Musculoskeletal: Denies limited range of motion Integumentary Integumentary: Reports systems reviewed and no addt'l complaints, except as documented Neurologic Neurologic: Reports systems reviewed and no addt'l complaints, except as documented Psychiatric Psychiatric: Reports systems reviewed and no addt'l complaints, except as documented Endocrine Endocrinology: Reports systems reviewed and no addt'l complaints, except as documented Hematologic/Lymphatic Hematologic/Lymphatic: Reports systems reviewed and no addt'l complaints, except as documented Allergic/Immunologic Allergic/Immunologic: Reports systems reviewed and no addt'l complaints, except as documented Physical Exam Const alert and oriented x3 General Appearance: cooperative Orientation / Consciousness: awake, oriented to person, oriented to place and oriented to time Exam Limitations: no limitations HEENT normocephalic Head and Scalp: normal to inspection, normocephalic and atraumatic Face and Sinus: normal facial exam Eyes General Eye: normal appearance of both eyes Neck full ROM Chest Chest: symmetrical chest wall rise Resp normal respiratory effort and normal air movement Auscultation: clear to auscultation bilaterally Cardio regular rate, regular rhythm, S1 normal heart sound, S2 normal heart sound, no murmurs, no rub, no gallops and no clicks GI normal to inspection, nondistended, normoactive bowel sounds and non-tender GI Narrative: Incision dressing dry and intact appearance of the vagina normal Bladder / Kidney Exam: no CVA tenderness Back/Spine normal ROM Extremity normal to inspection and full ROM Skin no rashes or lesions noted Neuro oriented x3, CN's II-XII intact bilaterally and moves all extremities Sensorium / Orientation: awake, alert and oriented to person Motor Exam: clonus absent Deep Tendon Reflexes: Rt Patellar (L4): 2+ and Lt Patellar (L4): 2+ Assessment & Plan (1) Status post emergency section: (2) Breech presentation: PLAN: Plan 1) Routine postoperative care 2) Vitals stable 3) I&O 4) Pain management 5) Planning D/C home tomorrow
[2022-04-21] MEDS: Senna/Docusate Sodium 1 Tablet PO (08:49)
[2022-04-21 08:51] VITALS: BP 97/54; PULSE 74; RESP 15; TEMP 36.5; O2SAT 98
[2022-04-21 13:18] VITALS: BP 98/56; PULSE 77; RESP 15; TEMP 36.8; O2SAT 97
[2022-04-21 20:31] VITALS: BP 108/63; PULSE 80; RESP 16; TEMP 36.6; O2SAT 98
[2022-04-22 02:03] VITALS: BP 99/58; PULSE 63; RESP 16; TEMP 36.3; O2SAT 97
[2022-04-22] MEDS: Acetaminophen 500 MG Tablet 1000 MG PO ×2 (02:09→09:17)
[2022-04-22] MEDS: Ibuprofen 600 MG Tablet PO ×2 (02:09→09:18)
--- NOTE | 2022-04-22 08:29 | PCM.PROGNOTE ---
Subjective Subjective patient seen at bedside, doing well. Patient reports good pain control. lochia mild. breast feeding. voiding and +BM w/o difficulty. tolerating regular diet. Objective Data Objective Data Vital Signs: Vital Signs Temp Pulse Resp BP Pulse Ox O2 Del Method 97.4 F L 63 16 99/58 L 97 Room Air 04/22/22 02:03 04/22/22 02:03 04/22/22 02:03 04/22/22 02:03 04/22/22 02:03 04/22/22 02:03 Oxygen Delivery Method Room Air Weight: 85.275 kg Body Mass Index (BMI) 28.1 Intake & Output: Intake and Output for Last 24 Hours 04/20/22 04/21/22 04/22/22 23:59 23:59 23:59 Intake Total 2033.33 / 2033.33 Output Total 4500 / 4500 Balance -2466.67 / -2466.67 Lab / Micro Data Result Diagrams: 04/20/22 05:37 Physical Exam Narrative dressing dry and intact Const alert and oriented x3 General Appearance: cooperative HEENT normocephalic Neck General: normal visual inspection GI soft to palpation and non-distended GI Narrative: Fundus firm Extremity normal to inspection and no calf tenderness Skin no rashes or lesions noted Neuro oriented x3 and CN's II-XII intact bilaterally Psych mental status grossly normal Assessment & Plan Assessment/Plan (1) Status post emergency section: (2) Breech presentation: (3) History of section: PLAN: Plan POD# 3 , Doing well Routine care pain mgmt monitor VS ambulation dc home
--- NOTE | 2022-04-22 08:30 | DCINST_ITS ---
Discharge Instructions Procedure Diet Discharge Diet: No restrictions Activity May resume sexual activity in: 6-8 weeks Lifting Restrictions: 25 Dressing / Incision Call your doctor if your incision/area has: Continuous Slow Oozing, Sudden Increased Bleeding, Increased Pain/ Swelling, Increased Redness, Foul Smelling Discharge and Swelling at the incision site Call your doctor if you observe: Fever of 101 or Higher, Inability to urinate, Using more than 1 pad per hour and Uncontrolled pain Additional Dressing/Incision Instructions:: remove dressing at 7 days post op- if it becomes saturated prior to that time you may remove it. Let soap and water run over incision sites and dab dry. keep incision clean and dry. Follow Up Care Please Follow Up With: Renetta Omalley MD When: 1-2 weeks post of incision check and again at 6 weeks post . [phone] Test Results: Test results from this visit will be discussed in further detail at your follow- up appointment, if applicable. Discharge Plan Admission Admit Date/Time: 04/19/22 23:30 Attending Provider: Karey Brannon Primary Care Provider: Care Physician,Oneyda Primary Discharge Orders/Prescriptions Prescriptions: New acetaminophen 500 mg Tablet 1,000 mg PO Q6H Qty: 0 0RF ibuprofen 600 mg Tablet 600 mg PO Q6H Qty: 0 0RF Continued Prenatabs FA 1 TABLET tablet 1 tab PO DAILY Referrals / Follow Up: Care Physician,No Primary [Primary Care Provider] - Disposition Disposition (needs filled in before D/C Order can be placed): Home, Self Care
--- NOTE | 2022-04-22 08:32 | PCM.DC.BLA ---
Discharge Summary Date of Admission: 04/19/22 Date of Discharge: 04/22/22 Summary: Patient was admitted to the hospital on April 19, 2022 with spontaneous rupture membranes at 38 weeks gestation- footling breech. Patient was found to have feet in the vagina and an emergency was performed by Dr. Karey Brannon. The uterine incision was a low transverse incision that was extended to a T-incision for delivery of the infant. The patient had an uncomplicated postoperative course and was discharged home on postoperative day #3 in stable condition. Meaningful Use Info Meaningful Use Diagnoses (Choose all that apply): None applicable Discharge Plan Admission Admit Date/Time: 04/19/22 23:30 Attending Provider: Karey Brannon Primary Care Provider: Care Physician,Oneyda Primary Discharge Orders/Prescriptions Prescriptions: New acetaminophen 500 mg Tablet 1,000 mg PO Q6H Qty: 0 0RF ibuprofen 600 mg Tablet 600 mg PO Q6H Qty: 0 0RF Continued Prenatabs FA 1 TABLET tablet 1 tab PO DAILY Referrals / Follow Up: Care Physician,Oneyda Primary [Primary Care Provider] - Disposition Disposition (needs filled in before D/C Order can be placed): Home, Self Care
[2022-04-22 09:22] VITALS: BP 98/60; PULSE 80; RESP 16; TEMP 36.5; O2SAT 98
[2022-04-22 09:23] VITALS: PULSE 80
[2022-04-22] MEDS: Senna/Docusate Sodium 1 Tablet PO (10:35)
== END 2022-04-22 11:40 | disposition home or self-care (01) | DRG 788 ==
PROVIDERS: Admitting Provider Obstetrics & Gynecology; Referring Provider Obstetrics & Gynecology; Visit Provider Obstetrics & Gynecology
DX: O32.1XX0 Maternal care for breech presentation, not applicable or unspecified (principal); O34.219 Maternal care for unspecified type scar from previous cesarean delivery; Z37.0 Single live birth; Z3A.38 38 weeks gestation of pregnancy
CPT/HCPCS: 74018; 85025; 85027; 86850; 86900; 86901; 99221; J7120; G0378

== ENCOUNTER 2024-02-03 09:53 | Inpatient (IN) | payer OTHER, SELFPAY ==
[2024-02-03] VITALS (19 sets, daily range): BP systolic 96–123; BP diastolic 45–81; PULSE 59–98; RESP 15–18; TEMP 36.1–36.6; O2SAT 97–100; BMI 30.2
[2024-02-03] MEDS: Lactated Ringers 1,000 ML 999 ML IV (10:20)
[2024-02-03 10:37] LABS: Absolute Neutrophil Count 6.1 X10^3/uL (2.0-7.7); Basophil# 0.02 X10^3/uL; Basophil% 0.2 % (0-1); Eosinophil# 0.07 X10^3/uL; Eosinophils% 0.8 % (0-5); Hematocrit 33.6 % (37-47); Hemoglobin 11.2 g/dL (12.0-15.0); Mean Corp Hgb Conc 33.3 g/dL (32-36); Mean Corpuscular Hgb 28.7 pg (27.0-32.0); Mean Corpuscular Volume 86.2 fL (81-99); Monocyte# 0.58 X10^3/uL; NRBC Flagged by Analyzer 0 % (0-5); Neutrophil % 74.2 % (47-70); Platelet Count 314 K/mm3 (150-450); RBC Distribution Width CV 12.8 % (11.6-14.6); RBC Distribution Width SD 39.7 fl (35.1-43.9); White Blood Count 8.2 K/mm3 (4.4-11.0)
[2024-02-03] MEDS: Acetaminophen 500 MG Tablet 1000 MG PO ×3 (10:39→23:59)
[2024-02-03] MEDS: Lactated Ringers 1,000 ML 150 ML IV (11:23)
[2024-02-03] MEDS: Sodium Citrate/Citric Acid 30 ML UDC PO (11:32)
--- NOTE | 2024-02-03 11:41 | PCM.HP.OB ---
HPI - General General Date of Admission: 02/03/24 HPI Narrative PAOLA HOWARD, is a 38 F who presents for with tubal sterilization. Maternal Data Information STEFAN Calculator Estimated Delivery Date Method Current WG Current Estimate 02/24/24 Manual 37w 0d PFSH PFSH Home Medications ?Medication ?Instructions ?Recorded ?Last Taken ?Type vits,calcium no.78-iron 1 tab PO DAILY 03/09/18 02/03/24 05:00 History fumarate-folic acid 29 mg-1 mg tablet (Prenatabs FA) Allergy/AdvReac Type Severity Reaction Status Date / Time No Known Allergies Allergy Verified 02/03/24 10:58 Surgical History (Updated 02/03/24 @ 11:[address] Bin Owens MD) Previous section [place] teeth extracted Social History Smoking Status: Never smoker History Elective abortions Hx Para 2 Spontaneous abortions Hx # Term Pregnancies Ectopic pregnancies Hx # Pregnancies Multiple births # of living children Vital Signs Vital Signs Vital Signs: 02/03/24 10:06 02/03/24 10:06 02/03/24 10:08 Temperature Temperature Source Pulse Rate 65 Respiratory Rate Blood Pressure 123/68 H Blood Pressure Mean BP Systolic 123 BP Diastolic 68 Blood Pressure Source Blood Pressure Position Blood Pressure Location Pulse Ox 98 Oxygen Delivery Method 02/03/24 10:08 02/03/24 11:00 Temperature 97.5 F L Temperature Source Temporal Pulse Rate 66 62 Respiratory Rate 16 Blood Pressure 123/68 H Blood Pressure Mean 86 BP Systolic BP Diastolic Blood Pressure Source Monitor Blood Pressure Position Semi-Fowlers Blood Pressure Location Left Arm Pulse Ox 98 Oxygen Delivery Method Room Air Weight Weight: 202 lb Body Mass Index (BMI) 30.2 Labs Labs Labs: Blood Type A POSITIVE Antibody Screen NEGATIVE Hct 33.6 % (37-47) L Hgb 11.2 g/dL (12.0-15.0) L Syphilis Total Ab Pending Rhogam given: No Assessment & Plan (1) 37 weeks gestation of : COMMENT: @ 37 weeks (2) History of section: (3) Request for sterilization: PLAN: Plan Admit to L&D MOD - proceed with repeat section with bilateral salpingectomy. R/B/A reviewed including risks of failure and regret. Informed consent signed. Prior T-uterine incision so delivery at 37 weeks recommended. Routine care
[2024-02-03] MEDS: Cefazolin 2 GM in 0.9% Normal Saline (100mL Bag) 100 ML IV (11:46)
--- NOTE | 2024-02-03 12:54 | EX.PCM.OBRPT ---
Maternal Data Information STEFAN Calculator Estimated Delivery Date Method Current WG Current Estimate 02/24/24 Manual 37w 0d Details Operative Information Date of Procedure: 02/03/24 Pre-Operative Diagnosis: (1) Prior section (2) Sterilization request Post-Operative Diagnosis: Same Indications for : Repeat Elective (Prior T-uterine incision) and Desires elective sterilization Indications Narrative: The patient was taken to the operating room where spinal anesthesia was placed & found to be adequate. She was prepped and draped in the dorsal supine position with a leftward tilt. A Pfannenstiel skin incision was made approximately 2 cm above the symphysis pubis and carried through to the underlying fascia with the scalpel. The fascia was incised incised in the midline and extended laterally with the Montiel scissors. The rectus muscles were in the midline and the peritoneum was entered carefully and bluntly. The peritoneal incision was stretched and the bladder blade was inserted. Vesicouterine peritoneum was tented up, incised & then bladder flap created gently. The uterine incision was made in a low transverse fashion with the scalpel and extended superiorly and inferiorly with blunt dissection. The 's head was brought to the incision in the flexed position and delivered without difficulty. The head was gently guided to allow delivery of the anterior and posterior shoulders. The body then delivered with fundal pressure in the standard fashion. The 3VC cord was clamped and cut in delayed fashion. The was handed off to the waiting pediatric dermatologist. The placenta was delivered with fundal massage and gentle traction in the standard fashion. The uterus was exteriorized and cleared of clots and debris. The uterine incision was closed with #1 Vicryl suture in a running locked fashion. Monocryl suture was used for 3 additional figure of 8 sutures to obtain excelled hemostasis. The incision was examined and was found to be hemostatic. The uterus was returned to the abdominal cavity. Attention was turned to the fallopian tubes. The right fallopian tube was grasped, cauterized and excised with the ligasure. After excision the tubal site was examined and excellent hemostasis was noted. Eliecer was placed over the tubal site. Then the left fallopian tube was grasped, cauterized and excised with the ligasure. After excision the tubal site was examined and excellent hemostasis was noted. Eliecer was placed over the tubal site. After irrigating Eliecer was placed over the uterine incision as some areas were denuded (but hemostatic). The rectus muscle was examined and any bleeding was Bovie cauterized. The fascia was closed with PDS suture in a running standard fashion. The subcutaneous tissue was examining and any bleeding was Bovie cauterized. The subcutaneous tissue was reapproximated with interrupted sutures. The skin was closed in a subcuticular fashion by the BARREL CHARRER HELPER while I was present in the labor & delivery unit. The remainder of the procedure was performed by me with assistance of the BARREL CHARRER HELPER. All sponge, lap, and needle counts were correct. The patient was taken to her room for recovery in a stable condition. Classification: Scheduled Procedure Type: low transverse (with bilateral salpingectomy) stacker driver #1: May Mosher Type of Anesthesia: Spinal Antibiotic Given: Ancef 2 grams IV x1 Drain: [place] to straight drain Estimated Blood Loss: 700ml Fluids Replaced: 950ml Procedure Start Time: 12:11 Procedure Stop Time: 12:55 Findings Description of Procedure: Normal maternal uterus and adnexa Presentation: Positive for Vertex Amniotic Membrane Rupture Type: Artificial Amniotic Fluid Description: Clear Placental Delivery Description: Expressed Placenta Disposition: [facility] Cord Vessel Description: 3 Vessels Cord Entanglement: None Infant A Gender: Female (Jocelyn, weight = 2760g) (1 minute): 8 (5 minute): 9 Delayed Cord Clamping: Yes Complications Complications: none
[2024-02-03] MEDS: Oxytocin 15 Units/NS 250ml 15 UNITS/250 ML IV.SOLN 83 UNITS IV (13:15)
--- NOTE | 2024-02-03 13:35 | FALS_PTH ---
PATIENT: PAOLA HOWARD LOC: [facility] U#:[id number] AGE/SX: 38/F ROOM: WP009 RE02/03/[address]: Dr. Bin Owens MD : 1985 BED: 1 DIS: 02/05/2024 SPEC #: [id number] RECD: 02/03/24 13:55 STATUS: MELISSA REChris #: [id number] JANET: 02/03/24 13:[address]: Bin Owens DEPT: SURGICAL PATHOLOGY RECD BY: Daysi Beasley ENTERED: 02/03/24 14:26 SP TYPE: FALL TUBES OTHR DR: Oneyda Primary Care Phys Tissues: Fallopian tube Procedures: Surgery Specimen Level II HEADER OPERATION: Tubal ligation PRE-OP DIAGNOSIS: Sterilization TISSUE SUBMITTED: Bilateral fallopian tubes MICROSCOPIC DIAGNOSIS Right fallopian tube, salpingectomy: Complete cross sections of fallopian tube. Benign paratubal cyst Left fallopian tube, salpingectomy: Complete segment of fallopian tube with benign paratubal cysts. AM: 02/07/2024 MICROSCOPIC DESCRIPTION Slides are reviewed. GROSS DESCRIPTION Received in fixative is one container labeled with the patient's name and designated bilateral fallopian tubes - right with tie. The specimen consists of bilateral fallopian tubes including fimbrial ends. Right fallopian tube measures 9.0cm in length and 1.0cm in diameter. Left fallopian tube measures 7.0cm in length and 1.2cm in diameter. Sections reveal unremarkable cut surfaces. Sheet Metal Fabricator sections are submitted in two cassettes. 1- right fallopian tube, 2- left fallopian tube / SJ: 02/04/2024 TC:5 CPT: 13264 x2
[2024-02-03 13:55] LABS: Pathology Specimen OB SEE PATHOLOGY REPORT
[2024-02-03] MEDS: Ketorolac 30 MG/ML Syringe IV ×3 (14:03→23:58)
[2024-02-03] MEDS: SimETHICONE 80 MG Chewable Tablet PO (17:56)
[2024-02-03] MEDS: 0.9% Saline Lock 10 ML Syringe IV ×2 (18:42→23:59)
[2024-02-03 21:27] LABS: Syphilis Antibodies Non-reactive
[2024-02-03] MEDS: Enoxaparin 40 MG/0.4 ML Syringe SC (23:58)
[2024-02-04 04:21] VITALS: BP 109/70; PULSE 62; RESP 16; TEMP 36.3; O2SAT 99
[2024-02-04 05:12] LABS: Hemoglobin 10.4 g/dL (12.0-15.0); Mean Corp Hgb Conc 33.5 g/dL (32-36); Mean Corpuscular Hgb 29.1 pg (27.0-32.0); Mean Corpuscular Volume 86.8 fL (81-99); Mean Platelet Vol. 9.6 fl (6.2-12.0); Platelet Count 236 K/mm3 (150-450); RBC Distribution Width CV 12.8 % (11.6-14.6); RBC Distribution Width SD 40.3 fl (35.1-43.9); Red Blood Count 3.57 M/mm3 (4.2-5.4); White Blood Count 9.6 K/mm3 (4.4-11.0)
[2024-02-04] MEDS: Acetaminophen 500 MG Tablet 1000 MG PO ×3 (05:37→17:22)
[2024-02-04] MEDS: 0.9% Saline Lock 10 ML Syringe IV (05:37)
[2024-02-04] MEDS: Ketorolac 30 MG/ML Syringe IV (05:37)
--- NOTE | 2024-02-04 08:42 | PN.OBGYN_ITS ---
Subjective Subjective Pain controlled. Ambulating and voiding without difficulty. Breast feeding. Objective Data Objective Data Vital Signs: Vital Signs Temp Pulse Resp BP Pulse Ox O2 Del Method 97.4 F L 62 16 109/70 99 Room Air 02/04/24 04:21 02/04/24 04:21 02/04/24 04:21 02/04/24 04:21 02/04/24 04:21 02/04/24 04:21 Oxygen Delivery Method Room Air Weight: 91.626 kg Body Mass Index (BMI) 30.2 Intake & Output: Intake and Output for Last 24 Hours 02/02/24 02/03/24 02/04/24 23:59 23:59 23:59 Intake Total 2860 / 2860 Output Total 2500 / 2500 800 / 800 Balance 360 / 360 -800 / -800 Lab / Micro Data 02/04/24 05:06 Labs: Laboratory Results - last 24 hr 02/03/24 10:20: WBC 8.2, RBC 3.90 L, Hgb 11.2 L, Hct 33.6 L, MCV 86.2, MCH 28.7, MCHC 33.3, RDW Std Deviation 39.7, RDW Coeff of [place]ica 12.8, Plt Count 314, MPV 10.0, Immature Gran % (Auto) 0.800, Neut % (Auto) 74.2 H, Lymph % (Auto) 17.0 L, [place] % (Auto) 7.0, Eos % (Auto) 0.8, Baso % (Auto) 0.2, Absolute Neuts (auto) 6.1, Absolute Lymphs (auto) 1.40, Nucleated RBC % 0, Syphilis Total Ab Non- reactive, Blood Type A POSITIVE, Antibody Screen NEGATIVE 02/04/24 05:06: WBC 9.6, RBC 3.57 L, Hgb 10.4 L, Hct 31.0 L, MCV 86.8, MCH 29.1, MCHC 33.5, RDW Std Deviation 40.3, RDW Coeff of [place] 12.8, Plt Count 236, MPV 9.6 ROS Constitutional Constitutional: Denies fatigue, fever(s) or malaise Eyes Eyes: Denies change in vision ENT HEENT: Denies dizziness or headache(s) Cardiovascular Cardiovascular: Denies chest pain, dyspnea or lightheadedness Respiratory/Chest Respiratory/Chest: Denies cough or dyspnea Gastrointestinal Gastrointestinal: Denies change in bowel habits Genitourinary Genitourinary: Denies burning urination or genital lesions Integumentary Integumentary: Denies rash Neurologic Neurologic: Denies confusion, dizziness, headache(s), numbness or weakness Physical Exam Const alert General Appearance: cooperative GI GI Narrative: soft, moderate distention, fundus firm, appropriately tender. Abdominal bandage clean dry and intact Assessment & Plan (1) Request for sterilization: (2) S/P : PLAN: Plan d/c tomorrow
[2024-02-04 08:55] VITALS: BP 105/73; PULSE 83; RESP 16; TEMP 36.3; O2SAT 99
[2024-02-04] MEDS: Senna/Docusate Sodium 1 Tablet PO (10:04)
[2024-02-04 11:46] VITALS: BP 101/70; PULSE 65; RESP 14; TEMP 36.5; O2SAT 98
[2024-02-04] MEDS: Ibuprofen 600 MG Tablet PO ×2 (12:42→18:46)
[2024-02-04 16:17] VITALS: BP 108/74; PULSE 66; RESP 16; TEMP 36.6; O2SAT 98
[2024-02-04 20:10] VITALS: BP 113/66; PULSE 62; RESP 16; TEMP 36.7; O2SAT 97
[2024-02-05] MEDS: Enoxaparin 40 MG/0.4 ML Syringe SC (00:03)
[2024-02-05] MEDS: Ibuprofen 600 MG Tablet PO ×2 (00:04→06:05)
[2024-02-05] MEDS: Acetaminophen 500 MG Tablet 1000 MG PO ×2 (00:04→06:05)
[2024-02-05 03:09] VITALS: BP 122/85; PULSE 71; RESP 16; TEMP 36.4; O2SAT 100
--- NOTE | 2024-02-05 08:53 | PCM.PN.OB ---
Subjective Subjective Doing well. Ambulating and voiding without difficulty. Mild lochia. Breast feeding. Objective Data Objective Data Vital Signs: Vital Signs Temp Pulse Resp BP Pulse Ox O2 Del Method 97.6 F L 71 16 122/85 H 100 Room Air 02/05/24 03:09 02/05/24 03:09 02/05/24 03:09 02/05/24 03:09 02/05/24 03:09 02/05/24 03:09 Oxygen Delivery Method Room Air Weight: 91.626 kg Body Mass Index (BMI) 30.2 Intake & Output: Intake and Output for Last 24 Hours 02/03/24 02/04/24 02/05/24 23:59 23:59 23:59 Intake Total 2860 / 2860 Output Total 2500 / 2500 800 / 800 Balance 360 / 360 -800 / -800 Lab / Micro Data 02/04/24 05:06 ROS Constitutional Constitutional: Denies fatigue, fever(s) or malaise Eyes Eyes: Denies change in vision ENT HEENT: Denies dizziness or headache(s) Cardiovascular Cardiovascular: Denies chest pain, dyspnea or lightheadedness Respiratory/Chest Respiratory/Chest: Denies cough or dyspnea Gastrointestinal Gastrointestinal: Denies change in bowel habits Genitourinary Genitourinary: Denies burning urination or genital lesions Integumentary Integumentary: Denies rash Neurologic Neurologic: Denies confusion, dizziness, headache(s), numbness or weakness Physical Exam Const alert General Appearance: cooperative GI GI Narrative: soft, moderate distention, fundus firm, appropriately tender. Abdominal bandage clean dry and intact Assessment & Plan (1) S/P : (2) Request for sterilization: PLAN: Plan Discharge home. No Rx desired
--- NOTE | 2024-02-05 08:54 | PCM.DC.SUM ---
Providers Date of Admission: 02/03/24 Date of Discharge: 02/05/24 Primary Care Physician: No Primary Care Phys Reason For Visit: REPEAT Diagnosis Discharge Diagnosis (1) S/P : Status: Acute Code(s): Z98.891 - History of uterine scar from previous surgery (2) Request for sterilization: Status: Acute Code(s): Z30.2 - Encounter for sterilization Plan Discharge home. No Rx desired Medications at Discharge Home Medications vits,calcium no.78-iron fumarate-folic acid 29 mg-1 mg tablet (Prenatabs FA) 1 tab PO DAILY 03/09/18 Hospital Course Operations section (with tubal) Procedures None Summary of Care Provided Minutes Spent on Discharge: 22 Hospital Course: Repeat with tubal. No complications. Breast feeding. Physical Exam Const alert General Appearance: cooperative GI GI Narrative: soft, moderate distention, fundus firm, appropriately tender. Abdominal bandage clean dry and intact Weight / BMI Weight Weight: 91.626 kg Body Mass Index (BMI) 30.2 ABG / Lab / Microbiology Data 02/04/24 05:06 D/C Instructions Discharge Diet: No restrictions May resume sexual activity in: 4-6 weeks Lifting Restrictions: 20 pounds Additional Activity Instructions: Nothing in the vagina for 4-6 weeks. You may return to work/school in 6 weeks. Call your doctor if your incision/area has: Continuous Slow Oozing, Sudden Increased Bleeding, Increased Pain/ Swelling, Increased Redness and Foul Smelling Discharge Call your doctor if you observe: Fever of 101 or Higher and Using more than 1 pad per hour (for 2 hours) Suture Line Care: Avoid Pulling/Pushing and Avoid Pinching/Bending Cleanse incision/area with: Keep Dressing Clean & Dry Please Follow Up With: Nemo Schaefer MD When: Call to make an appointment for an incision check in 1-2 [phone]. You will need a post check in 6 weeks. Meaningful Use Info Meaningful Use Meaningful Use Diagnoses (Choose all that apply): None applicable Ischemic Stroke Statin Dosing Therapy Reference: STATIN DOSE THERAPY REFERENCE: * Patients > 75 years receive moderate or high dose statin therapy. * Patients 75 years or YOUNGER should receive HIGH intensity statin dose unless contraindicated. You will be required to document reason for non-treatment if statin daily dose does not meet guidelines. HIGH DOSE STATIN THERAPY DAILY Atorvastatin > than or = to 40 mg Rosuvastatin > than or = to 20 mg Amlodipine + Atorvastatin > than or = to 2.5/40 mg Ezetimibe + Simvastatin 10/80 mg Simvastatin 80mg Discharge Plan Admission Admit Date/Time: 02/03/24 09:53 Primary Reason for Your Visit: repeat Attending Provider: Bin Owens Primary Care Provider: Care Physician,Oneyda Primary Discharge Orders/Prescriptions Prescriptions: Continued Prenatabs FA 1 TABLET tablet 1 tab PO DAILY Referrals / Follow Up: Care Physician,No Primary [Primary Care Provider] - Disposition Disposition (needs filled in before D/C Order can be placed): Home, Self Care
[2024-02-05 09:10] VITALS: BP 110/79; PULSE 84; RESP 14; TEMP 36.7; O2SAT 99
--- NOTE | 2024-02-11 13:59 | NURSING ---
Follow up phone call made, Roberta states she is feeling well. States her bleeding is minimal and her incision looks good. Denies any headaches, visual disturbances,or baby blues. Patient state is going well, denies any questions.
== END 2024-02-05 11:45 | disposition home or self-care (01) | DRG 785 ==
PROVIDERS: Admitting Provider Obstetrics & Gynecology; Referring Provider Obstetrics & Gynecology; Visit Provider Obstetrics & Gynecology
PROC: 10D00Z1 Extraction of Products of Conception, Low, Open Approach (ICD-10-PCS; CPT 59514; principal; 2024-02-03 11:45)
DX: O34.219 Maternal care for unspecified type scar from previous cesarean delivery (principal); Z30.2 Encounter for sterilization; Z3A.37 37 weeks gestation of pregnancy; Z37.0 Single live birth
CPT/HCPCS: 59025; 59050; 85025; 85027; 86780; 86850; 86900; 86901; 88302; 99221; J7120; A4216; G0378; J2405